=== PATIENT | female | born 1980 | race American Indian/Alaskan Native ===

== ENCOUNTER → 2016-10-11 | Outpatient (CLI) | payer OTHER ==
[~2016-10-11] MED LIST: DOCU10ELUD PO; IBUP80TA PO; PERCOCET PO; PRENTAB9 PO
[2016-10-11 07:16] LABS: MEAN CORPUSCULAR HGB CONC 34.4 g/dl (32.0-36.5); RED CELL DISTRIBUTION WIDTH 12.6 % (11.5-14.5); WHITE BLOOD COUNT 8.6 K/mm3 (4.0-10.0)
[2016-10-11 07:41] LABS: ALBUMIN 3.5 GM/DL (3.2-5.2); ALBUMIN/GLOBULIN RATIO 0.81 (1.00-1.93); ALKALINE PHOSPHATASE 95 U/L (45-117); ALT/SGPT 117 U/L (12-78); ANION GAP 8 MEQ/L (8-16); AST/SGOT 64 U/L (15-37); BILIRUBIN,TOTAL 0.3 MG/DL (0.2-1.0); BLOOD UREA NITROGEN 13 MG/DL (7-18); CALCIUM LEVEL 8.4 MG/DL (8.5-10.1); CARBON DIOXIDE LEVEL 26 MEQ/L (21-32); CHLORIDE LEVEL 106 MEQ/L (98-107); CHOLESTEROL LEVEL 191 MG/DL (<200); CREATININE FOR GFR 0.66 MG/DL (0.55-1.02); GLOMERULAR FILTRATION RATE > 60.0 (>60); GLUCOSE, FASTING 98 MG/DL (70-105); POTASSIUM SERUM 4.2 MEQ/L (3.5-5.1); SODIUM LEVEL 140 MEQ/L (136-145); TOTAL PROTEIN 7.8 GM/DL (6.4-8.2); TRIGLYCERIDES LEVEL 157 MG/DL (<150)
== END ==
LOC: M LAB 06:12
PROVIDERS: ATTEND Family Medicine
DX: I10 Essential (primary) hypertension (principal); R53.83 Other fatigue

== ENCOUNTER → 2016-10-12 | Outpatient (CLI) | payer OTHER ==
--- NOTE | 2016-10-15 09:07 | REP ---
MRI BRAIN WITHOUT AND WITH CONTRAST: 10/12/2016 CLINICAL HISTORY: Headaches. Dizziness, blurred vision for 3 weeks. COMPARISON: None. TECHNIQUE: Axial T1, T2, FLAIR, diffusion weighted images and ADC mapping sequences with a sagittal T1 sequence provided. The patient received 19 mL of ProHance with T1 axial and coronal sequences through the orbits and brain. It should be noted there is a large metallic magnetic susceptibility artifact obscuring sinus and inferior aspect of orbits introducing some artifact over the frontal lobes as well as their frontal poles. Ventricles are midline, symmetric and are without dilatation or displacement. Basal ganglia symmetric and normal. The cano-white junction differentiation is well maintained. Cortical stripe preserved. There is no vascular territory infarct, hemorrhage, mass or mass effect. Brainstem and cerebellum intact. Basal cisterns intact. Seventh/eighth cranial nerve complexes and mastoids are intact. Only the sphenoid sinuses can be evaluated well and these are clear. The corpus callosum, optic chiasm and pituitary are normal. Orbits and contents are rather dramatically obscured by artifact as described above. There is no cerebellar tonsillar ectopia. The enhanced images show no enhancing mass, vascular lesion, abnormal meningeal enhancement or gyriform enhancement. IMPRESSION: 1. Negative MRI of the brain without and with contrast for mass, edema, infarct, hemorrhage or visible vascular abnormality. No abnormal enhancement. 2. The diffusion-weighted images and ADC mapping sequences are nondiagnostic because of the dramatic magnetic susceptibility artifact from some facial metal. 3. Likewise orbits and sinuses except the sphenoid sinuses are limited in evaluation for the same reason. Nothing acute. Signed by Rogelio Mercedes MD 10/15/2016 01:27 P
== END ==
LOC: M RAD 16:27
PROVIDERS: ATTEND Family Medicine
DX: R51 Headache (principal); R42 Dizziness and giddiness; H53.8 Other visual disturbances
CPT/HCPCS: 70553; A9576

== ENCOUNTER → 2020-09-26 | Outpatient (CLI) | payer BC ==
[~2020-09-26] MED LIST changes: -DOCU10ELUD PO; +DOCU5LIQ PO; +OXYC1TAB23 PO; -PERCOCET PO
--- NOTE | 2020-09-26 15:12 | REPMRS ---
Patient History The patient states she has not had a clinical breast exam in over a year. No known family history of cancer. No breast complaints today Baseline @ 40 1st covid vaccine 07/04/20-right arm-Pfizer 2nd covid vaccine 07/24/20-right arm Best views possible on left MLO due to body habitus and couldn't get patient to relax her shoulder any more. Digital Woman Screen Mammo: September 26, 2020 - Exam #: [id number] Bilateral CC and MLO view(s) were taken. Technologist: Qiana Arciniega, Technologist FINDINGS: There are scattered fibroglandular densities. Screening. Digital screening (2D) mammography was performed bilaterally. Additionally, breast tomosynthesis (3D) mammography was perfomed bilaterally in the CC and MLO projections. Today's examination is the initial screening examination. By history, the patient has no complaints of a palpable breast abnormality or other significant breast complaints. The breasts are symmetric in size and shape. There are no masses. There is no internal architectural distortion. There are no suspicious microcalcific clusters. Skin thickening or nipple retraction is not present. IMPRESSION: BI-RADS Category 2- Benign Findings(s). There is no evidence of malignant alteration of the breasts. Followup examination recommended in one year. The Volpara volumetric breast density category is B, there are scattered areas of fibroglandular density. This mammogram was read with the assistance of [employer],an FDA approved computer aided detection system for mammography. The lifetime Tyrer-Cuzick score is 10.6 % Negative x-ray reports should not delay surgical consultation if a dominant or clinically suspicious mass is present. Not all breast cancers can be identified by mammography. Therefore, we recommend that you continue to perform regular breast self-examination and physical examination and then promptly contact your physician of any concerns or changes. Adenosis and dense breasts may obscure an underlying neoplasm. Assessment: BI-RADS/ACR category 2 mammogram. Benign Findings. Recommendation Routine screening mammogram of both breasts in 1 year. Electronically Signed By: Dragan Anders DO 09/26/20 [id number]
== END ==
LOC: M WHC 13:01
PROVIDERS: ATTEND Nurse Practitioner Family
DX: Z12.31 Encounter for screening mammogram for malignant neoplasm of breast (principal)

== ENCOUNTER → 2021-02-10 | Outpatient (CLI) | payer BC | LOC: M SLEEP HO 10:43 | PROVIDERS: ATTEND Internal Medicine | DX: R53.82 Chronic fatigue, unspecified (principal) ==

== ENCOUNTER → 2021-02-13 | Outpatient (CLI) | payer BC ==
--- NOTE | 2021-02-14 11:33 | REP ---
INDICATION: DORSALGIA, UNSPECIFIED COMPARISON: None. TECHNIQUE: AP, lateral, flexion/extension, bilateral oblique, and coned-down views. FINDINGS: Lateral views best demonstrate grade 1 chronic spondylolysis and spondylolisthesis at the L5-S1 level of approximately 7 mm with associated hypertrophic facet changes and mild endplate sclerosis. The disc spaces are relatively maintained throughout the lumbar spine. Vertebral bodies are otherwise intact and normal. Alignment and lordosis from the lower thoracic through L4/5 level is maintained and normal. IMPRESSION: Chronic grade 1 spondylolysis and spondylolisthesis at L5-S1. <Electronically signed by Victor Hugo Ayala > 02/14/21 1123
== END ==
LOC: M RAD 11:35
PROVIDERS: ATTEND Internal Medicine
DX: M54.9 Dorsalgia, unspecified (principal)

== ENCOUNTER → 2021-05-26 | Outpatient (CLI) | payer BC | LOC: M LABSMTC 09:19 | PROVIDERS: ATTEND Nurse Practitioner Family | DX: Z01.812 Encounter for preprocedural laboratory examination (principal); Z11.52 Encounter for screening for COVID-19 ==

== ENCOUNTER 2021-06-29 07:58 | Outpatient (RCR) | payer BC | END 2021-07-03 | LOC: M PT 07:58 | PROVIDERS: ATTEND Internal Medicine | DX: M43.16 Spondylolisthesis, lumbar region (principal) ==

== ENCOUNTER → 2021-08-11 | Outpatient (CLI) | payer BC | LOC: M SLEEP 20:00 | PROVIDERS: ATTEND Nurse Practitioner Adult Health | DX: G47.33 Obstructive sleep apnea (adult) (pediatric) (principal) ==

== ENCOUNTER 2021-08-27 03:56 | Emergency (ER) | payer BC, OTHER ==
[~2021-08-27] VITALS: Ht 157.5 cm; Wt 99.1 kg
[2021-08-27] MEDS ORDERED: ALBU8.5H PO (04:15)
[2021-08-27] MEDS ORDERED: PROZ20CA11 PO (04:15)
[2021-08-27] MEDS ORDERED: METF-838 PO (04:15)
[2021-08-27] MEDS ORDERED: OMEP40CA5 PO (04:15)
[2021-08-27] MEDS ORDERED: ACETAMINOPHEN 500 MG TAB PO ONE (06:40)
[2021-08-27 06:45] LABS: BASO % 0.5 % (0.0-1.0); EOS # 0.5 10^3/uL (0.0-0.5); EOS % 6.5 % (0.0-3.0); HEMATOCRIT 43.9 % (36.0-47.0); HEMOGLOBIN 14.8 g/dl (12.0-15.5); LYMPH # 2.9 10^3/uL (1.5-5.0); LYMPH % 35.7 % (24.0-44.0); MEAN CORPUSCULAR HEMOGLOBIN 29.8 pg (27.0-33.0); MEAN CORPUSCULAR HGB CONC 33.7 g/dl (32.0-36.5); MEAN CORPUSCULAR VOLUME 88.3 fl (80.0-96.0); MONO # 0.6 10^3/uL (0.0-0.8); MONO % 7.1 % (2.0-8.0); PLATELET COUNT, AUTOMATED 339 10^3/uL (150-450); RED BLOOD COUNT 4.97 10^6/uL (4.00-5.40)
[2021-08-27 07:05] LABS: ERYTHROCYTE SEDIMENTATION RATE 57 mm/hr (0-20)
[2021-08-27 07:08] LABS: BLOOD UREA NITROGEN 12 MG/DL (7-18); C REACTIVE PROTEIN QUANTITATIV 1.48 MG/DL (0.00-0.30); CALCIUM LEVEL 8.8 MG/DL (8.5-10.1); CARBON DIOXIDE LEVEL 22 MEQ/L (21-32); CHLORIDE LEVEL 109 MEQ/L (98-107); CREATININE FOR GFR 0.55 MG/DL (0.55-1.30); GLOMERULAR FILTRATION RATE > 60.0 (>58); GLUCOSE, FASTING 105 MG/DL (70-100); SODIUM LEVEL 137 MEQ/L (136-145)
[2021-08-27 07:12] LABS: CK-MB VALUE MASS < 1.0 NG/ML (<3.6); CPK CREATINE PHOSPHOKINASE 137 U/L (26-192); MB/CK RELATIVE INDEX 0.73 (< OR =4)
[2021-08-27 09:00] VITALS: BP 115/76
[2021-08-27] MEDS ORDERED: TIZA1TAB12 PO (09:05)
== END 2021-08-27 09:23 | disposition home or self-care (01) ==
LOC: M ED 03:56
DX: S40.012A Contusion of left shoulder, initial encounter (principal); X58.XXXA Exposure to other specified factors, initial encounter; Y92.9 Unspecified place or not applicable; Y93.9 Activity, unspecified; Y99.9 Unspecified external cause status; E11.9 Type 2 diabetes mellitus without complications; Z79.84 Long term (current) use of oral hypoglycemic drugs; Z79.899 Other long term (current) drug therapy